=== PATIENT | female | born 1950 ===

== ENCOUNTER 2017-02-24 10:07 | Emergency (ER) | payer MEDICARE, MEDICAID ==
[2017-02-24 10:34] VITALS: BP 149/76; PULSE 73; RESP 18; TEMP 97; O2SAT 98
--- NOTE | 2017-02-24 10:40 | ED PDOC ---
HPI: Abdomen Time Seen by Provider: 02/24/17 10:13 Chief Complaint (Nursing): GI Problem Chief Complaint (Provider): Abdominal Pain History Per: Patient Additional Complaint(s): 66 yo female, PMH of HTN, DM, High Cholesterol and HIV, presents to ED with complaints of diarrhea, nausea, palpitations and fatigue for 3 days, pt denies blood in stool, chest pain, sob, vomiting, fever or chills. PMD: Dr. Ott Past Medical History Reviewed: Historical Data, Nursing Documentation, Vital Signs Vital Signs: Last Vital Signs Temp 97 F L 02/24/17 10:21 Pulse 73 02/24/17 10:21 Resp 18 02/24/17 10:21 BP 149/76 02/24/17 10:21 Pulse Ox 98 02/24/17 10:40 - Medical History PMH: HIV, Hypercholesterolemia - Surgical History Surgical History: Appendectomy, Cholecystectomy - Family History Family History: States: Unknown Family Hx - Living Arrangements Living Arrangements: With Family - Social History Current smoker - smoking cessation education provided: No Alcohol: None Drugs: Denies - Home Medications Home Medications: Ambulatory Orders Medication Instructions Recorded Ciprofloxacin [Cipro] 500 mg PO BID #6 tab 02/24/17 Metronidazole [Flagyl] 500 mg PO BID #14 tab 02/24/17 - Allergies Allergies/Adverse Reactions: Allergies Allergy/AdvReac Type Severity Reaction Status Date / Time No Known Allergies Allergy Verified 02/24/17 10:20 Review of Systems ROS Statement: Except As Marked, All Systems Reviewed And Found Negative Gastrointestinal: Positive for: Abdominal Pain, Diarrhea Physical Exam - Reviewed Nursing Documentation Reviewed: Yes Vital Signs Reviewed: Yes - Physical Exam Appears: Positive for: Well, Non-toxic, No Acute Distress Head Exam: Positive for: ATRAUMATIC, NORMAL INSPECTION, NORMOCEPHALIC Skin: Positive for: Normal Color, Warm, DRY Eye Exam: Positive for: EOMI, Normal appearance, PERRL ENT: Positive for: Normal ENT Inspection Neck: Positive for: Normal, Painless ROM Cardiovascular/Chest: Positive for: Regular Rate, Rhythm Respiratory: Positive for: CNT, Normal Breath Sounds Gastrointestinal/Abdominal: Positive for: Normal Exam, Bowel Sounds, Soft Back: Positive for: Normal Inspection Extremity: Positive for: Normal ROM Neurologic/Psych: Positive for: Alert, Oriented - Laboratory Results Result Diagrams: 02/24/17 11:21 02/24/17 11:21 - ECG O2 Sat by Pulse Oximetry: 98 Medical Decision Making Medical Decision Making: IV access established and treatment initiated with IVF, Zofran, Pepcid Diagnostics ordered EKG: NSR at 68 bpm, no axis deviation, no acute ST changes, as read by ED MD WBC WNL 98.9 BUN elevated at 20, IVF running UA resulted with 38 WBC, moderate leuks IV Cipro and Flagyl ordered Pt doing well on re-evl, no complaints. abdomen soft non tender and non distended Pt aferbile Stable for discharge home at this time no stool sample obtained, Pt unable to produce specimen Disposition - Clinical Impression Clinical Impression: Diarrhea, UTI (urinary tract infection) - Patient ED Disposition Is Patient to be Admitted: No - Disposition Disposition: Routine/Home Disposition Time: 15:15 Condition: STABLE Prescriptions: Ciprofloxacin [Cipro] 500 mg PO BID #6 tab Metronidazole [Flagyl] 500 mg PO BID #14 tab Instructions: Acute Diarrhea (ED) Forms: [employer] (Romansh)
[2017-02-24 10:54] LABS: RBC URINE 3 /hpf (0-3); URINE BACTERIA MOD (<OCC); URINE BILIRUBIN NEGATIVE (NEGATIVE); URINE BLOOD NEGATIVE (NEGATIVE); URINE COLOR YELLOW (YELLOW); URINE GLUCOSE (UA) 50 mg/dL (Normal); URINE KETONE TRACE mg/dL (NEGATIVE); URINE LEUKOCYTE ESTERASE MOD Leu/uL (Negative); URINE PROTEIN 100 mg/dL (NEGATIVE); URINE UROBILINOGEN 0.2-1.0 mg/dL (0.2-1.0); WBC URINE 38 /hpf (0-5)
--- NOTE | 2017-02-24 10:58 | RAD ---
PROCEDURE: CHEST RADIOGRAPH, 1 VIEW HISTORY: Abdominal pain COMPARISON: 08/09/2013. FINDINGS: LUNGS: The lungs are clear. PLEURA: No pneumothorax or pleural fluid seen. CARDIOVASCULAR: Normal. OSSEOUS STRUCTURES: No significant abnormalities. VISUALIZED UPPER ABDOMEN: Normal. OTHER FINDINGS: None. IMPRESSION: No active pulmonary disease.
[2017-02-24 11:37] LABS: BASO % 0.4 % (0.0-2.0); EOS # 0.1 K/uL (0.0-0.7); EOS % 1.2 % (0.0-4.0); HEMATOCRIT 42.1 % (34.0-47.0); LYMPH # 2.3 K/uL (1.0-4.3); LYMPH % 25.6 % (20.0-40.0); MEAN CELL VOLUME 93.3 fl (81.0-99.0); MEAN CORPUSCULAR HEMOGLOBIN 32.7 pg (27.0-31.0); MEAN CORPUSCULAR HGB CONC 35.1 g/dL (33.0-37.0); MEAN PLATELET VOLUME 9.4 fl (7.2-11.7); MONO # 0.7 K/uL (0.0-0.8); MONO % 8.4 % (0.0-10.0); NEUT # 5.7 K/uL (1.8-7.0); NEUT % 64.4 % (50.0-75.0); RED CELL DISTRIBUTION WIDTH 13.2 % (11.5-14.5); WHITE BLOOD COUNT 8.9 K/uL (4.8-10.8)
[2017-02-24 12:02] LABS: ALB/GLOB RATIO 1.3 (1.0-2.1); ALKALINE PHOSPHATASE 120 U/L (38-126); ALT/SGPT 31 U/L (9-52); AMYLASE 89 U/L (30-110); AST/SGOT 49 U/L (14-36); BILIRUBIN,TOTAL 0.6 mg/dl (0.2-1.3); BLOOD UREA NITROGEN 20 mg/dl (7-17); CALCIUM 10.1 mg/dL (8.4-10.2); CARBON DIOXIDE 24 mmol/L (22-30); CHLORIDE 102 mmol/L (98-107); GFR AFRICAN-AMERICAN > 60; GLUCOSE,RANDOM 211 mg/dL (65-105); LIPASE 98 U/L (23-300); SODIUM 139 mmol/l (132-148); TOTAL PROTEIN 8.5 G/DL (6.3-8.2)
[2017-02-24 12:03] LABS: POTASSIUM 4.6 MMOL/L (3.6-5.0)
[2017-02-24] MEDS ORDERED: Sodium Chloride 0.9% 1,000 ML IV STA (13:13)
[2017-02-24] MEDS ORDERED: Ciprofloxacin 400mg/200ml D5W 400 MG/200 ML BAG IVPB STA (13:14)
[2017-02-24] MEDS ORDERED: metroNIDAZOLE 500mg/100ml NS 100 ML IVPB STA ×2 (13:14→13:16)
[2017-02-24] MEDS ORDERED: Ciprofloxacin 400mg/200ml D5W 400 MG/200 ML BAG IVPB ONE (13:21)
--- NOTE | 2017-02-25 07:38 | CARD ---
APPROVED REPORT EKG Measurement Heart [id number] ID [id number] <Conclusion> Normal sinus rhythm Left axis deviation Abnormal ECG
== END 2017-02-24 15:17 | disposition home or self-care (01) ==
LOC: H.ER 10:07
DX: N39.0 Urinary tract infection, site not specified (principal); E78.00 Pure hypercholesterolemia, unspecified; E11.9 Type 2 diabetes mellitus without complications; I10 Essential (primary) hypertension
CPT/HCPCS: 71010; 80053; 81003; 82150; 83690; 84484; 85025; 93005; 96374; 96375; 99283; J0744; J2405; J7040

== ENCOUNTER 2017-11-23 08:48 | Day surgery (SDC) | payer MEDICARE, MEDICAID ==
[2017-11-16 10:37] VITALS: BMI 32.8
[2017-11-23] MEDS ORDERED: Tropicamide 1% Opht 150 DROP/15 ML OD ONE ×2 (10:00→10:30)
[2017-11-23] MEDS ORDERED: Phenylephrine 2.5% Opht Soln OD ONE ×2 (10:00→10:30)
[2017-11-23] MEDS ORDERED: Maxitrol Opht Susp ONE (10:00)
[2017-11-23] MEDS ORDERED: Flurbiprofen 0.03% Opht SOLN OD ONE ×2 (10:00→10:30)
[2017-11-23] MEDS ORDERED: Lidocaine 1% 20 MG/2 ML PF AMP ONE (10:01)
[2017-11-23] MEDS ORDERED: Tetracaine 0.5% Ophth 2 ML BOTTLE ONE (10:01)
[2017-11-23] MEDS ORDERED: CA CL/K CL/NA CL 500 ML IR ONE (10:02)
[2017-11-23] MEDS ORDERED: Pilocarpine 1% Opht Soln ONE (10:02)
[2017-11-23] MEDS ORDERED: STERILE IRRIGATING SOLUTION 45 ML IR ONE (10:02)
[2017-11-23] MEDS ORDERED: Povidone Iodine 5% Opht SOLUTION ONE (10:03)
[2017-11-23] MEDS ORDERED: Chondroitin/Hyaluronate Opth Syringe KIT (0.55 ml-0.5 ml) IO ONE ×3 (10:03→12:58)
[2017-11-23 10:49] LABS: BLOOD UREA NITROGEN 15 mg/dl (7-17); CALCIUM 9.7 mg/dL (8.4-10.2); GFR AFRICAN-AMERICAN > 60; GFR NON-AFRICAN AMERICAN > 60
[2017-11-23] MEDS ORDERED: Midazolam 2 MG/2 ML VIAL ONE (12:30)
[2017-11-23] MEDS ORDERED: Lactated Ringer's 1,000 ML IV ONE (12:40)
[2017-11-23] MEDS ORDERED: Povidone Iodine 5% Opht SOLUTION OD ONE (12:54)
[2017-11-23] MEDS ORDERED: BSS 15 ML SOL IR ONE ×2 (12:58→13:04)
[2017-11-23] MEDS: EPINEPHrine 1 mg/ml (1:1000) Inj ONE ×2 (12:58→13:00)
[2017-11-23] MEDS ORDERED: Pilocarpine 1% Opht Soln OD ONE ×2 (12:59→13:08)
[2017-11-23] MEDS: Carbachol 0.01% IO ONE ×2 (12:59→13:06)
[2017-11-23] MEDS ORDERED: Maxitrol Opht Susp OD ONE ×2 (13:00→13:10)
[2017-11-23 15:24] VITALS: BP 112/62; PULSE 96; RESP 2; TEMP 97.6; O2SAT 95
--- NOTE | 2017-11-24 09:47 | OP ---
PROCEDURE DATE: 11/24/2017 SURGEON: HIRA PARKER MD ANESTHESIOLOGIST: GABRIELLE SPARKS MD ANESTHESIA: IV SEDATION PREOPERATIVE DIAGNOSIS: CATARACT RIGHT EYE. POSTOPERATIVE DIAGNOSIS: CATARACT RIGHT EYE. OPERATION: CLEAR CORNEAL PHACOEMULSIFICATION WITH LENS IMPLANT RIGHT EYE. PREPARATION AND PROCEDURE: After the patient was prepped and draped in the usual manner for sterile ophthalmic surgery, local IV sedation was administered ; eye seals were applied to the upper and lower lid margins and an adult wire lid speculum was placed within the lids. Under microsurgical control, a two- step clear corneal incision was made into the anterior chamber. The initial incision was perpendicular to the corneal plane. The second incision with the keratome was placed at a 45-degree angle to the first incision. One cc of one percent Xylocaine MPF was instilled into the anterior chamber to achieve proper intraocular anesthesia. At this time, the Viscoelastic was injected into the anterior chamber for protection of the endothelium and for maintenance of the chamber depth. A 360-degree continuous curvilinear capsulorrhexis was performed using a pre-bent 25-gauge needle. Hydrodissection and hydrodelineation were performed using a Cha cannula and balanced salt solution. Utilizing the tip of the Cha cannula, the nucleus was rotated freely within the capsular bag. A standard one-handed phacoemulsification was utilized at this time for sculpting and rotating of the nucleus. The nucleus was fragmented in its entirety and aspirated without any consequence. A standard I&A was carried out for the residual cortical material. No residual material was noted within the capsular bag. The posterior capsule was noted to be clear. Additional Viscoelastic was injected into the capsular bag in preparation for lens implantation. After this has been satisfactorily achieved the intraocular lens injected through the corneal incision into the capsular bag. The intraocular lens was manipulated until it was properly oriented and the Viscoelastic was evacuated from the capsular bag and anterior chamber. The anterior chamber was reformed with balanced salt solution. The corneal incision was irrigated with BSS. The intraocular pressure was found to be within normal limits. This terminated the procedure. The speculum and lid drapes were removed. TobraDex ophthalmic suspension and Pilocarpine 1% drops one drop was applied to the eye. POSTOPERATIVE CONDITION: The patient was brought to the Post anesthesia Recovery area with stable vital signs. DHIRA BUNCH MDD
== END 2017-11-23 15:15 | disposition home or self-care (01) ==
LOC: H.OPSURG 08:48
PROVIDERS: ATTEND Ophthalmology
DX: H25.811 Combined forms of age-related cataract, right eye (principal); E11.9 Type 2 diabetes mellitus without complications; Z21 Asymptomatic human immunodeficiency virus [HIV] infection status
CPT/HCPCS: 36415; 66984; 80048; 82948; J0171; J2250; J3010; J7120; V2632

== ENCOUNTER 2017-12-14 10:25 | Day surgery (SDC) | payer MEDICARE, MEDICAID ==
[2017-11-16 10:03] VITALS: BMI 32.8
[~2017-12-14 10:25] MED LIST: CA CL/K CL/NA CL 500 ML IR ONE; Carbachol 0.01% IO ONE; Chondroitin/Hyaluronate Opth Syringe KIT (0.55 ml-0.5 ml) IO ONE; EPINEPHrine 1 mg/ml (1:1000) Inj ONE; Lidocaine 1% 20 MG/2 ML PF AMP ONE; Maxitrol Opht Susp ONE; Pilocarpine 1% Opht Soln ONE; Povidone Iodine Topical 10% Sol ONE; STERILE IRRIGATING SOLUTION 45 ML IR ONE; Tetracaine 0.5% Ophth 2 ML BOTTLE ONE
[2017-12-14] MEDS ORDERED: Flurbiprofen 0.03% Opht SOLN OS ONE ×2 (11:20→11:40)
[2017-12-14] MEDS ORDERED: Phenylephrine 2.5% Opht Soln OS ONE ×2 (11:20→11:40)
[2017-12-14] MEDS ORDERED: Tropicamide 1% Opht 150 DROP/15 ML OS ONE ×2 (11:20→11:40)
[2017-12-14 11:52] LABS: BLOOD UREA NITROGEN 18 mg/dl (7-17); CALCIUM 10.4 mg/dL (8.4-10.2); GFR NON-AFRICAN AMERICAN > 60
[2017-12-14] MEDS ORDERED: Lactated Ringer's 1,000 ML IV ONE (11:55)
[2017-12-14 12:16] VITALS: RESP 18
[2017-12-14] MEDS ORDERED: Midazolam 2 MG/2 ML VIAL ONE (12:46)
[2017-12-14] MEDS ORDERED: Tetracaine 0.5% Ophth 2 ML BOTTLE OS ONE (13:00)
[2017-12-14] MEDS ORDERED: Povidone Iodine 5% Opht SOLUTION OS ONE (13:03)
[2017-12-14] MEDS ORDERED: Chondroitin/Hyaluronate Opth Syringe KIT (0.55 ml-0.5 ml) IO ONE (13:10)
[2017-12-14] MEDS ORDERED: BSS 15 ML SOL IR ONE (13:10)
[2017-12-14] MEDS ORDERED: Acetylcholine 1% Opth System Pack IO ONE (13:14)
[2017-12-14 15:16] VITALS: O2SAT 98
[2017-12-14 16:13] VITALS: BP 145/78; PULSE 68; TEMP 97.6
--- NOTE | 2018-01-04 19:15 | OP ---
PROCEDURE DATE: 12/14/2017 SURGEON: HIRA PARKER MD ANESTHESIOLOGIST: GABRIELLE SPARKS MD ANESTHESIA: LOCAL / IV SEDATION PREOPERATIVE DIAGNOSIS: CATARACT LEFT EYE. POSTOPERATIVE DIAGNOSIS: CATARACT LEFT EYE. OPERATION: CLEAR CORNEAL PHACOEMULSIFICATION WITH LENS IMPLANT LEFT EYE. PREPARATION AND PROCEDURE: After the patient was prepped and draped in the usual manner for sterile ophthalmic surgery, local IV sedation was administered ; eye seals were applied to the upper and lower lid margins and an adult wire lid speculum was placed within the lids. Under microsurgical control, a two- step clear corneal incision was made into the anterior chamber. The initial incision was perpendicular to the corneal plane. The second incision with the keratome was placed at a 45-degree angle to the first incision. One cc of one percent Xylocaine MPF was instilled into the anterior chamber to achieve proper intraocular anesthesia. At this time, the Viscoelastic was injected into the anterior chamber for protection of the endothelium and for maintenance of the chamber depth. A 360-degree continuous curvilinear capsulorrhexis was performed using a pre-bent 25-gauge needle. Hydrodissection and hydrodelineation were performed using a Cha cannula and balanced salt solution. Utilizing the tip of the Cha cannula, the nucleus was rotated freely within the capsular bag. A standard one-handed phacoemulsification was utilized at this time for sculpting and rotating of the nucleus. The nucleus was fragmented in its entirety and aspirated without any consequence. A standard I&A was carried out for the residual cortical material. No residual material was noted within the capsular bag. The posterior capsule was noted to be clear. Additional Viscoelastic was injected into the capsular bag in preparation for lens implantation. After this has been satisfactorily achieved the intraocular lens injected through the corneal incision into the capsular bag. The intraocular lens was manipulated until it was properly oriented and the Viscoelastic was evacuated from the capsular bag and anterior chamber. The anterior chamber was reformed with balanced salt solution. The corneal incision was irrigated with BSS. The intraocular pressure was found to be within normal limits. This terminated the procedure. The speculum and lid drapes were removed. TobraDex ophthalmic suspension and Pilocarpine 1% drops one drop was applied to the eye. POSTOPERATIVE CONDITION: The patient was brought to the Post anesthesia Recovery area with stable vital signs. DHIRA BUNCH MD
== END 2017-12-14 16:20 | disposition home or self-care (01) ==
LOC: H.OPSURG 10:25
PROVIDERS: ATTEND Ophthalmology
DX: H26.9 Unspecified cataract (principal)
CPT/HCPCS: 36415; 66984; 80048; 82948; J0171; J1885; J2250; J3010; J7120; V2632

== ENCOUNTER 2017-12-15 17:03 | Emergency (ER) | payer MEDICARE, MEDICAID ==
[2017-12-15 17:03] VITALS: BMI 32.8
[2017-12-15 17:31] VITALS: O2SAT 99
[2017-12-15 19:42] VITALS: BP 159/80; PULSE 92; RESP 19; TEMP 98.2
--- NOTE | 2017-12-15 20:09 | ED PDOC ---
Lower Extremity Pain/Injury Chief Complaint (Provider): Lower Extremity Problem/Injury History Per: Patient History/Exam Limitations: no limitations Onset/Duration Of Symptoms: Days (x5) Current Symptoms Are (Timing): Still Present Additional Complaint(s): 67 y/o female with a PMHx of HIV, DM, High Cholesterol, Left breast cancer presents to the ED for evaluation of left lower back pain that radiates to the left hip and lower extremity, onset five days ago. Patient reports of taking Tylenol for pain at 2 PM with no relief. Of note, patient also has a history of arthritis. Patient states she is compliant with HIV medication. Otherwise: (-) history of back surgery, (-) trauma, (-) fall, (-) fever, (-) chills, (-) urinary symptoms, (-) chest pain, (-) shortness of breath, (-) numbness, (-) weakness, (-) other complaints at this time. PMD: Tad Ramos <Analy Peterson - Last Filed: 12/18/17 11:02> <Lori Peraza - Last Filed: 12/18/17 12:53> Time Seen by Provider: 12/15/17 18:06 Chief Complaint (Nursing): Lower Extremity Problem/Injury Past Medical History Reviewed: Historical Data, Nursing Documentation, Vital Signs Vital Signs: Last Vital Signs Temp 98.2 F 12/15/17 19:36 Pulse 92 H 12/15/17 19:36 Resp 19 12/15/17 19:36 BP 159/80 H 12/15/17 19:36 Pulse Ox 99 12/15/17 19:36 - Medical History PMH: Diabetes, HIV, Hypercholesterolemia Other PMH: left breast cancer - Surgical History Surgical History: Appendectomy, Cholecystectomy, (2) Other surgeries: Cataracts, left breast lumpectomy, hysterectomy - Family History Family History: States: Unknown Family Hx <Analy Peterson - Last Filed: 12/18/17 11:02> Vital Signs: Last Vital Signs Temp 98.2 F 12/15/17 19:36 Pulse 92 H 12/15/17 19:36 Resp 19 12/15/17 19:36 BP 159/80 H 12/15/17 19:36 Pulse Ox 99 12/18/17 11:03 <Lori Peraza - Last Filed: 12/18/17 12:53> - Home Medications Home Medications: Ambulatory Orders Medication Instructions Recorded Efavirenz/Emtricitabine/Teno 1 tab PO DAILY 11/16/17 [Atripla 600 MG-200 MG-300 MG] Insulin Glargine, Recombina 40 units SQ DAILY 11/16/17 [Lantus] Rosuvastatin Calcium [Crestor] 10 mg PO DAILY 11/16/17 SITagliptin [Januvia] 100 mg PO DAILY 11/16/17 metFORMIN [glucOPHAGE] 500 mg PO BID 11/16/17 Acetaminophen [Acetaminophen 8 650 mg PO Q8 PRN #21 tablet.er 12/15/17 Hour] Meloxicam [Mobic] 15 mg PO DAILY #10 tab 12/15/17 Lidocaine 5% [Lidoderm] 1 ea TD Q12H 5 Days #5 patch 12/16/17 - Allergies Allergies/Adverse Reactions: Allergies Allergy/AdvReac Type Severity Reaction Status Date / Time No Known Allergies Allergy Verified 12/16/17 08:58 Review of Systems ROS Statement: Except As Marked, All Systems Reviewed And Found Negative Constitutional: Negative for: Fever, Chills Cardiovascular: Negative for: Chest Pain Respiratory: Negative for: Shortness of Breath Genitourinary Female: Negative for: Dysuria, Frequency, Incontinence, Hematuria Musculoskeletal: Positive for: Back Pain (left low), Leg Pain (left hip and leg) Neurological: Negative for: Weakness, Numbness <Analy Peterson - Last Filed: 12/18/17 11:02> Physical Exam - Reviewed Nursing Documentation Reviewed: Yes Vital Signs Reviewed: Yes - Physical Exam Comments: GENERAL APPEARANCE: Patient is awake, alert, oriented x 3, in no acute distress. Resting comfortably. SKIN: Warm, dry; (-) cyanosis. ENMT: Mucous membranes moist. Airway patent, (-) stridor. NECK: Supple, FROM (-) tenderness, (-) stiffness, (-) lymphadenopathy. CHEST AND RESPIRATORY: (-) rales, (-) rhonchi, (-) wheezes; breath sounds equal bilaterally. Respirations even and nonlabored. HEART AND CARDIOVASCULAR: (-) irregularity; (-) murmur ABDOMEN AND GI: Soft; (-) tenderness; (-) palpable mass (-) distention (-) guarding (-) rebound. BACK: (+) left paralumbar and sciatic notch tenderness, (-) mild spasm, (-) direct bony tenderness, (-) deformity (-) CVA tenderness EXTREMITIES: (-) deformity. Distal pulses good bilaterally. NEURO AND PSYCH: Mental status as above. Intact sensation bilaterally; normal strength in extension of the knees, plantar and dorsiflexion of the toes. Steady , unassisted gait. Speech clear (-) facial asymmetry <Analy Peterson - Last Filed: 12/18/17 11:02> - ECG O2 Sat by Pulse Oximetry: 99 (RA) Pulse Ox Interpretation: Normal <Analy Peterson - Last Filed: 12/18/17 11:02> Medical Decision Making Medical Decision Making: Time: 1839 Impression: Acute Back Pain, Radiculopathy, Probable Sciatica Plan: -- Toradol 15 mg IM -- Tylenol 650 mg PO -- Re-evaluation Time: 1929 Repeat HR: 92 Repeat BP: 159/80 On re-evaluation, patient reports improvement of symptoms. On exam, patient remains AAOx3, in no acute distress. Lungs clear to auscultation, cardiac RRR, abdomen soft, non-tender, repeat neuro exam shows no focal findings. VSS, stable for discharge. Lab/Diagnostic results d/w the patient in great detail. Diagnosis of acute back pain, sciatica with radicular pain d/w the patient. Based on history, exam and diagnostic results, plan will be for outpatient follow up. Patient instructed to follow-up with pmd / referral provided / the clinic in 1- 2 days without fail. Advised to take medication as prescribed. Return to the emergency room at any time for any new or worsening symptoms. Patient states she fully agrees with and understands discharge instructions. States that she agrees with the plan and disposition. Verbalized and repeated discharge instructions and plan. I have given the patient opportunity to ask any additional questions. Scribe Attestation: Documented by Stanley White acting as a scribe for Analy Peterson PA-C. Provider Scribe Attestation: All medical record entries made by the Scribe were at my direction and personally dictated by me. I have reviewed the chart and agree that the record accurately reflects my personal performance of the history, physical exam, medical decision making, and the department course for this patient. I have also personally directed, reviewed, and agree with the discharge instructions and disposition. <Analy Peterson - Last Filed: 12/18/17 11:02> Disposition - Patient ED Disposition Is Patient to be Admitted: No Counseled Patient/Family Regarding: Diagnosis, Need For Followup, Rx Given - Disposition Disposition: Routine/Home Disposition Time: 19:30 - POA Present On Arrival: None <Analy Peterson - Last Filed: 12/18/17 11:02> - Disposition Disposition: Routine/Home <Lori Peraza - Last Filed: 12/18/17 12:53> - Clinical Impression Clinical Impression: Lower back pain, Sciatica of left side, Radicular pain of left lower extremity - Disposition Referrals: Yuan Solnao MD [Staff Provider] - Tad Ramos MD [Family Provider] - Condition: STABLE Additional Instructions: FOLLOW UP WITH PMD/ORTHO FOR FURTHER EVALUATION The emergency medical care you received today was directed at your acute symptoms. If you were prescribed any medication, please fill it and take as directed. It may take several days for your symptoms to resolve. Return to the Emergency Department if your symptoms worsen, do not improve, or if you have any other problems. Please contact your doctor in 2 days for re-evaluation and follow up / or call one of the physicians/clinics you have been referred to that are listed on the Patient Visit Information form that is included in your discharge packet. Bring any paperwork you were given at discharge with you along with any medications you are taking to your follow up visit. Our treatment cannot replace ongoing medical care by a primary care provider (PCP) outside of the emergency department. Prescriptions: Acetaminophen [Acetaminophen 8 Hour] 650 mg PO Q8 PRN #21 tablet.er PRN Reason: Pain, Moderate (4-7) Meloxicam [Mobic] 15 mg PO DAILY #10 tab Instructions: Sciatica, Low Back Pain (DC), Sciatica Exercises, Radiculopathy Forms: [employer] ([place]) Print Language: TRISTANIAN
== END 2017-12-15 19:35 | disposition home or self-care (01) ==
LOC: H.ER 17:03
DX: M54.42 Lumbago with sciatica, left side (principal); M54.16 Radiculopathy, lumbar region
CPT/HCPCS: 96372; 99282; J1885